=== PATIENT | female | born 1955 | race African-American/Black ===

== ENCOUNTER 2021-07-30 02:14 | Inpatient (IN) | payer OTHER, MEDICAID ==
[~2021-07-30] VITALS: Ht 160 cm; Wt 85.7 kg
[~2021-07-30 02:14] MED LIST: AMOXICILLIN; LOSARTAN; RANITIDINE; TRAMADOL; [UNRECOGNIZED DRUG - OTHER]
[2021-07-30] MEDS ORDERED: PANTOPRAZOLE SODIUM 40 MG/VIAL IV STA (06:26)
[2021-07-30] MEDS ORDERED: ONDANSETRON HCL 4MG/2ML INJ IV STA (06:26)
[2021-07-30] MEDS ORDERED: MAGNESIUM/ALUMINUM HYDROXIDE/SIMETHICONE 30ML UDC PO STA (06:26)
[2021-07-30 08:23] LABS: BASOPHILS % 0.9 % (0.0-2.0); EOSINOPHILS % 0.6 % (0.0-5.0); HEMATOCRIT. 38.8 % (36.0-48.0); HEMOGLOBIN. 12.4 g/dL (12.0-16.0); LYMPHOCYTES % 14.8 % (20.0-50.0); MEAN CORPUSCULAR HEMOGLOBIN 28.2 pg (28.0-32.0); MEAN CORPUSCULAR VOLUME 88.6 fL (81.0-99.0); MEAN PLATELET VOLUME 7.8 fl (7.4-10.4); NEUTROPHILS % 75.7 % (40.0-76.0); PLATELET 344 x1000/uL (130-400); RED BLOOD CELL COUNT 4.38 mill/uL (4.2-5.4); RED CELL DISTRIBUTION WIDTH 15.3 % (11.6-14.6)
[2021-07-30 08:27] LABS: CLARITY URINE CLEAR (CLEAR); COLOR URINE YELLOW (YELLOW); KETONES URINE NEGATIVE (NEGATIVE); LEUKOCYTE ESTERASE URINE NEGATIVE (NEGATIVE); NITRITE URINE NEGATIVE (NEGATIVE); OCCULT BLOOD URINE NEGATIVE (NEGATIVE); PH URINE 6.5 (4.5-8.0); PROTEIN URINE TRACE (NEGATIVE); UROBILINOGEN URINE 0.2 E.U./dL (0.2-1.0)
[2021-07-30] MEDS ORDERED: MORPHINE SULFATE 4 MG/ML CPJ (NOT FOR IM USE) IV ONE (08:30)
[2021-07-30 08:31] LABS: CHLORIDE 111 mEq/L (98-107)
[2021-07-30 08:34] LABS: PROTHROMBIN TIME 10.6 sec (9.6-11.0)
[2021-07-30] MEDS ORDERED: CEFTRIAXONE 1 G PREMIX 50 ML IV SCH (11:30)
[2021-07-30] MEDS ORDERED: FLUCONAZOLE 100MG TABLET PO NR (12:00)
[2021-07-30] MEDS ORDERED: HYDROCODONE/ACETAMINOPHEN 5/325MG TABLET PO ONE (13:30)
[2021-07-30] MEDS ORDERED: ONDANSETRON HCL 4MG/2ML INJ IV PRN (14:00)
[2021-07-30] MEDS ORDERED: ACETAMINOPHEN 325MG TABLET PO PRN (14:00)
[2021-07-30] MEDS ORDERED: MAGNESIUM/ALUMINUM HYDROXIDE/SIMETHICONE 30ML UDC PO PRN (14:00)
[2021-07-30] MEDS ORDERED: DOCUSATE SODIUM 100MG CAPSULE PO PRN (14:00)
[2021-07-30] MEDS ORDERED: CLONIDINE 0.1MG TABLET PO PRN (14:00)
[2021-07-30] MEDS ORDERED: GUAIFENESIN 200MG/10ML SUGAR FREE UDC PO PRN (14:00)
[2021-07-30] MEDS: SODIUM CHLORIDE 0.45% 1,000 ML IV SCH ×2 (14:28→23:03)
[2021-07-30] MEDS ORDERED: ENOXAPARIN 30MG/0.3ML SYR SUBCUT SCH (14:30)
[2021-07-30 17:30] VITALS: BP 140/76
[2021-07-30] MEDS: HYDROMORPHONE HCL/PF 2MG/ML CPJ IV PRN ×2 (17:55→22:19)
[2021-07-30] MEDS ORDERED: CITA10SO MT (18:50)
[2021-07-30] MEDS ORDERED: LOSA100T32 PO (18:50)
[2021-07-30] MEDS ORDERED: CARV3.1242 MT (18:50)
[2021-07-30] MEDS ORDERED: OMEP20CA14 MT (18:50)
[2021-07-30] MEDS ORDERED: ALLO100T MT (18:50)
[2021-07-30] MEDS ORDERED: ALBU4TAB6 PO (18:50)
[2021-07-30] MEDS ORDERED: MONT10TA32 MT (18:50)
[2021-07-30] MEDS ORDERED: BUDE6HFA INH (18:50)
[2021-07-30] MEDS ORDERED: FURO20TA4 MT (18:50)
[2021-07-30 20:00] VITALS: BP 120/66
[2021-07-31] VITALS: BP 112/65
[2021-07-31] MEDS: HYDROMORPHONE HCL/PF 2MG/ML CPJ IV PRN ×3 (02:06→09:33)
[2021-07-31 04:00] VITALS: BP 107/48
[2021-07-31 07:37] LABS: BASOPHILS % 0.7 % (0.0-2.0); EOSINOPHILS % 1.6 % (0.0-5.0); HEMATOCRIT. 34.3 % (36.0-48.0); HEMOGLOBIN. 11.3 g/dL (12.0-16.0); LYMPHOCYTES % 28.3 % (20.0-50.0); MEAN CORPUSCULAR VOLUME 87.9 fL (81.0-99.0); MONOCYTES % 7.9 % (2.0-8.0); NEUTROPHILS % 61.5 % (40.0-76.0); PLATELET 348 x1000/uL (130-400); RED BLOOD CELL COUNT 3.91 mill/uL (4.2-5.4)
[2021-07-31 07:47] LABS: CHLORIDE 107 mEq/L (98-107)
[2021-07-31 08:00] VITALS: BP 110/56
[2021-07-31] MEDS ORDERED: CEFTRIAXONE 1,000 MG in DEXTROSE 5% WATER 50 ML IV SCH (09:00)
[2021-07-31] MEDS ORDERED: FLUCONAZOLE 100MG TABLET PO SCH (09:00)
[2021-07-31] MEDS: SODIUM CHLORIDE 0.45% 1,000 ML IV SCH ×2 (10:54→21:02)
[2021-07-31] MEDS: CARVEDILOL 3.125 MG TABLET PO SCH ×2 (11:00→20:50)
[2021-07-31] MEDS ORDERED: IPRATROPIUM/ALBUTEROL 0.5-3(2.5)MG/3ML NEB HHN PRN (11:00)
[2021-07-31] MEDS: LOSARTAN POTASSIUM 100 MG TABLET PO SCH (11:00)
[2021-07-31] MEDS: OMEPRAZOLE 20MG CAPSULE EXTENDED RELEASE PO SCH (11:44)
[2021-07-31] MEDS: ALLOPURINOL 100 MG TABLET PO SCH (11:44)
[2021-07-31] MEDS: FUROSEMIDE 20MG TABLET PO SCH (11:44)
[2021-07-31 11:58] VITALS: BP 98/50
[2021-07-31] MEDS: HYDROCODONE/ACETAMINOPHEN 5/325MG TABLET PO PRN ×2 (14:06→21:13)
[2021-07-31 16:00] VITALS: BP 130/63
[2021-07-31] MEDS: KETOROLAC 15MG/ML VIAL IV PRN (16:57)
[2021-07-31] MEDS ORDERED: MONTELUKAST SODIUM 10MG TABLET PO SCH (17:00)
[2021-07-31 20:00] VITALS: BP 127/72
[2021-07-31] MEDS ORDERED: ENOXAPARIN 40MG/0.4ML SYR SUBCUT SCH (21:00)
[2021-08-01] VITALS: BP 130/69
[2021-08-01] MEDS: KETOROLAC 15MG/ML VIAL IV PRN ×2 (00:17→12:57)
[2021-08-01] MEDS: HYDROCODONE/ACETAMINOPHEN 5/325MG TABLET PO PRN ×3 (01:45→10:02)
[2021-08-01 04:00] VITALS: BP 136/71
[2021-08-01] MEDS: SODIUM CHLORIDE 0.45% 1,000 ML IV SCH (06:39)
[2021-08-01 07:23] LABS: BASOPHILS % 0.8 % (0.0-2.0); EOSINOPHILS % 1.6 % (0.0-5.0); HEMATOCRIT. 33.9 % (36.0-48.0); LYMPHOCYTES % 33.1 % (20.0-50.0); MEAN CORPUSCULAR HEMOGLOBIN 28.7 pg (28.0-32.0); MEAN CORPUSCULAR VOLUME 88.8 fL (81.0-99.0); MEAN PLATELET VOLUME 7.9 fl (7.4-10.4); MONOCYTES % 8.1 % (2.0-8.0); NEUTROPHILS % 56.4 % (40.0-76.0); PLATELET 310 x1000/uL (130-400); RED BLOOD CELL COUNT 3.82 mill/uL (4.2-5.4); RED CELL DISTRIBUTION WIDTH 15.2 % (11.6-14.6)
[2021-08-01 08:00] VITALS: BP 144/77
[2021-08-01 08:10] LABS: CHLORIDE 112 mEq/L (98-107)
[2021-08-01] MEDS: CARVEDILOL 3.125 MG TABLET PO SCH (09:58)
[2021-08-01] MEDS: LOSARTAN POTASSIUM 100 MG TABLET PO SCH (09:58)
[2021-08-01] MEDS: FUROSEMIDE 20MG TABLET PO SCH (09:58)
[2021-08-01] MEDS: ALLOPURINOL 100 MG TABLET PO SCH (09:58)
[2021-08-01] MEDS: OMEPRAZOLE 20MG CAPSULE EXTENDED RELEASE PO SCH (10:01)
[2021-08-01] MEDS ORDERED: CEFTRIAXONE 1,000 MG in DEXTROSE 5% WATER 50 ML IV SCH (11:00)
[2021-08-01] MEDS ORDERED: FLUCONAZOLE 100MG TABLET PO NR (11:45)
[2021-08-01 12:00] VITALS: BP 145/75
[2021-08-01 12:47] VITALS: BP 145/75
[2021-08-01 12:57] VITALS: BP 145/75
[2021-08-10] MEDS ORDERED: ISOS30TA91 MT (01:18)
[2021-08-10] MEDS ORDERED: CITA10TA9 MT (01:18)
[2021-08-10] MEDS ORDERED: ALBU6.7H9 INH (01:18)
[2021-08-10] MEDS ORDERED: TRAM50TA3 MT (01:18)
[2021-08-10] MEDS ORDERED: VALA100044 MT (01:18)
== END 2021-08-01 14:15 | disposition home or self-care (01) | DRG 690 ==
LOC: ER 02:14 → MICUSO 13:25 → 6EST 16:30
PROVIDERS: ADMIT Hospitalist; ATTEND Hospitalist
DX: N10 Acute pyelonephritis (principal); I50.9 Heart failure, unspecified; J44.9 Chronic obstructive pulmonary disease, unspecified; K21.9 Gastro-esophageal reflux disease without esophagitis; I11.0 Hypertensive heart disease with heart failure; M10.9 Gout, unspecified; Z82.49 Family history of ischemic heart disease and other diseases of the circulatory system; Z88.8 Allergy status to other drugs, medicaments and biological substances; N17.0 Acute kidney failure with tubular necrosis
CPT/HCPCS: 36415; 74176; 80053; 81003; 83605; 85025; 93005; 93970; 99285; C9113; J0696; J1170; J1650; J1885; J2270; J2405; J7060